=== PATIENT | female | born 1955 | race Caucasian/White ===

== ENCOUNTER → 2018-03-26 | Outpatient (CLI) | payer OTHER ==
[~2018-03-26] MED LIST: REGADENOSON 0.4 MG/5 ML DISP.SYRIN. IV
== END | disposition home or self-care (01) ==
LOC: PCVCIMAG 12:54
DX: I08.3 Combined rheumatic disorders of mitral, aortic and tricuspid valves (principal); R79.89 Other specified abnormal findings of blood chemistry; R42 Dizziness and giddiness; Z72.0 Tobacco use
CPT/HCPCS: 78452; 93017; 93306; A9500; J2785